=== PATIENT | male | born 1960 | race Hispanic/Latino ===

== ENCOUNTER 2019-12-05 06:59 | Inpatient (IN) | payer OTHER ==
[~2019-12-05] VITALS: Ht 160 cm; Wt 69.5 kg
[2019-12-05] MEDS ORDERED: ONDANSETRON HCL 4 MG/2 ML VIAL ONE ×2 (07:04→08:22)
[2019-12-05] MEDS ORDERED: FENTANYL CITRATE PF 50 MCG/1 ML 2ML VIAL ONE (07:43)
[2019-12-05] MEDS ORDERED: TETANUS/DIPHTHERIA TOXOID [ADULT] 0.5 ML VIAL IM ONE (07:44)
[2019-12-05 07:48] LABS: BASOPHILS % (AUTO) 0.4 % (0.0-5.0); EOSINOPHILS % (AUTO) 0.7 % (0.0-8.0); HEMATOCRIT 38.2 % (42-54); MEAN CORPUSCULAR HGB CONC 34.3 g/dL (32.0-36.0); MEAN CORPUSCULAR VOLUME 90.5 fL (79-99); MONOCYTES % (AUTO) 7.9 % (3.0-13.0); NEUTROPHILS % (AUTO) 66.6 % (40.0-77.0); PLATELET COUNT (AUTO) 168 K/uL (130-400); RED BLOOD CELL COUNT(AUTO) 4.22 MIL/uL (4.50-6.20); RED CELL DISTRIBUTION WIDTH 11.9 % (11.0-15.5); WHITE BLOOD COUNT (AUTO) 8.4 K/uL (4.8-10.8)
[2019-12-05 07:52] LABS: CREATININE 1.1 mg/dL (0.5-1.5); POTASSIUM 4.3 mmol/L (3.5-5.1)
[2019-12-05 07:57] LABS: INR 1.07 (0.85-1.15); PARTIAL THROMBOPLASTIN TIME 25.4 SEC (26.3-35.5); PROTHROMBIN TIME 11.5 SEC (9.6-11.6)
[2019-12-05 07:58] LABS: ALBUMIN 3.8 g/dL (3.5-5.0); BILIRUBIN,TOTAL 0.5 mg/dL (0.2-1.0); TOTAL PROTEIN, SERUM 7.8 g/dL (6.0-8.3)
[2019-12-05] MEDS ORDERED: IOHEXOL 350 MG/ML 100ML INFUS..BTL IV ONE (08:05)
[2019-12-05] MEDS ORDERED: MORPHINE SULFATE 4 MG/1ML SYG ONE (09:50)
[2019-12-05] MEDS ORDERED: SODIUM CHLORIDE 0.9% 100 ML IV ONE (12:26)
[2019-12-05] MEDS ORDERED: CEFAZOLIN SODIUM 1 GM VIAL ONE (12:26)
[2019-12-05] MEDS ORDERED: ONDANSETRON HCL 4 MG/2 ML VIAL IVP PRN (14:15)
[2019-12-05] MEDS ORDERED: IPRATROPIUM 0.5 MG/2.5 ML INH IH PRN (14:15)
[2019-12-05] MEDS ORDERED: ALBUTEROL SULFATE 0.083% 2.5 MG/3 ML INH IH PRN (14:15)
[2019-12-05] MEDS ORDERED: MORPHINE SULFATE 5 MG/ML VIAL IM PRN (14:15)
[2019-12-05] MEDS: KETOROLAC TROMETHAMINE 30MG/ML IM SCH ×2 (14:15→21:13)
[2019-12-05] MEDS: LIDOCAINE 5% TOPICAL PATCH TP SCH (14:15)
[2019-12-05] MEDS ORDERED: MORPHINE SULFATE 5 MG/ML VIAL ONE (16:24)
[2019-12-05] MEDS ORDERED: LACTATED RINGERS 1000ML 1,000 ML IV ONE (16:24)
[2019-12-05] MEDS ORDERED: LIDOCAINE 5% TOPICAL PATCH TP ONE (16:24)
[2019-12-05 19:00] VITALS: BP 101/63
[2019-12-05] MEDS ORDERED: ATOR10 PO (19:43)
[2019-12-05] MEDS ORDERED: GLIP2.5T2 PO (19:43)
[2019-12-05] MEDS ORDERED: METF-444 PO (19:43)
[2019-12-05 20:00] VITALS: BP 109/67
[2019-12-05 21:00] VITALS: BP 148/82
[2019-12-05] MEDS: LACTATED RINGERS 1000ML 1,000 ML IV SCH (21:13)
[2019-12-05 22:00] VITALS: BP 92/61
[2019-12-05 23:00] VITALS: BP 107/61
[2019-12-06] VITALS (23 sets, daily range): BP systolic 91–156; BP diastolic 59–88
[2019-12-06] MEDS: KETOROLAC TROMETHAMINE 30MG/ML IM SCH ×4 (03:24→20:21)
[2019-12-06 04:16] LABS: BASOPHILS % (AUTO) 0.1 % (0.0-5.0); EOSINOPHILS % (AUTO) 0.4 % (0.0-8.0); HEMATOCRIT 32.9 % (42-54); LYMPHOCYTES % (AUTO) 20.2 % (21.0-51.0); MEAN CORPUSCULAR HEMOGLOBIN 31.5 pg (27.0-33.0); MEAN CORPUSCULAR HGB CONC 34.3 g/dL (32.0-36.0); MEAN CORPUSCULAR VOLUME 91.6 fL (79-99); MONOCYTES % (AUTO) 11.9 % (3.0-13.0); PLATELET COUNT (AUTO) 122 K/uL (130-400); RED BLOOD CELL COUNT(AUTO) 3.59 MIL/uL (4.50-6.20); RED CELL DISTRIBUTION WIDTH 11.7 % (11.0-15.5); WHITE BLOOD COUNT (AUTO) 8.5 K/uL (4.8-10.8)
--- NOTE | 2019-12-06 06:30 | NUR ---
STATUS PATIENT AMBULATED IN HALLWAY. TOLERATED ACTIVITY WELL. FULL WEIGHT BEARING WITH PAIN ON AMBULATION TO LEFT LEG. POSITIONED IN BEDSIDE CHAIR TO COMFORT.
[2019-12-06] MEDS: LACTATED RINGERS 1000ML 1,000 ML IV SCH ×2 (07:20→16:47)
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
[2019-12-06] MEDS ORDERED: GLUCAGON 1MG KIT 1 MG ML IM PRN (13:15)
[2019-12-06] MEDS ORDERED: DEXTROSE 50%-WATER 50 ML DISP.SYRIN IV PRN (13:15)
[2019-12-06] MEDS: LIDOCAINE 5% TOPICAL PATCH TP SCH (15:31)
[2019-12-06] MEDS: INSULIN HUMULIN R 100 UNIT/ML 3ML SQ SCH ×2 (15:35→21:00)
--- NOTE | 2019-12-06 22:40 | NUR ---
Transfer to Med/Surg Spoke to donis Kim to transfer patient to floor.
--- NOTE | 2019-12-06 23:30 | NUR ---
TRANSFER RECEIVED PATIENT FROM ICU VIA BED, PATIENT AWAKE, ALERT, OX3, NO SOB, NO C/O PAIN AT THIS TIME, IVF INFUSING WELL, LEFT LOWER EXTREMITY DRESSING INTACT WITH SMALL AREA OF SEROS SANGUINOUS DRAINAGE NOTED, TEACH PATIENT PLAN OF CARE AND EXPECTED OUTCOME
[2019-12-07] MEDS: KETOROLAC TROMETHAMINE 30MG/ML IM SCH ×2 (02:31→09:38)
[2019-12-07 04:50] VITALS: BP 146/81
[2019-12-07 04:50] LABS: BASOPHILS % (AUTO) 0.1 % (0.0-5.0); EOSINOPHILS % (AUTO) 1.7 % (0.0-8.0); HEMATOCRIT 29.3 % (42-54); LYMPHOCYTES % (AUTO) 18.1 % (21.0-51.0); MEAN CORPUSCULAR HEMOGLOBIN 31.9 pg (27.0-33.0); MEAN CORPUSCULAR HGB CONC 34.8 g/dL (32.0-36.0); MEAN CORPUSCULAR VOLUME 91.6 fL (79-99); MONOCYTES % (AUTO) 11.1 % (3.0-13.0); NEUTROPHILS % (AUTO) 68.7 % (40.0-77.0); PLATELET COUNT (AUTO) 120 K/uL (130-400); RED CELL DISTRIBUTION WIDTH 11.6 % (11.0-15.5); WHITE BLOOD COUNT (AUTO) 7.1 K/uL (4.8-10.8)
[2019-12-07 05:01] LABS: CREATININE 0.8 mg/dL (0.5-1.5)
[2019-12-07] MEDS: LACTATED RINGERS 1000ML 1,000 ML IV SCH ×2 (05:58→21:14)
[2019-12-07] MEDS: INSULIN HUMULIN R 100 UNIT/ML 3ML SQ SCH ×4 (06:22→21:10)
[2019-12-07 10:11] VITALS: BP 157/85
[2019-12-07 11:50] VITALS: BP 157/57
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
[2019-12-07 18:29] VITALS: BP 142/82
[2019-12-07] MEDS: LIDOCAINE 5% TOPICAL PATCH TP SCH (19:06)
[2019-12-07] MEDS: KETOROLAC TROMETHAMINE 30MG/ML IV SCH ×2 (19:07→20:15)
[2019-12-07 20:00] VITALS: BP 148/75
[2019-12-08] VITALS: BP 114/69
[2019-12-08] MEDS: KETOROLAC TROMETHAMINE 30MG/ML IV SCH ×2 (01:53→10:04)
[2019-12-08 03:39] VITALS: BP 129/77
[2019-12-08 05:23] LABS: BASOPHILS % (AUTO) 0.3 % (0.0-5.0); EOSINOPHILS % (AUTO) 2.3 % (0.0-8.0); HEMATOCRIT 28.3 % (42-54); LYMPHOCYTES % (AUTO) 22.6 % (21.0-51.0); MEAN CORPUSCULAR HEMOGLOBIN 31.4 pg (27.0-33.0); MEAN CORPUSCULAR HGB CONC 34.3 g/dL (32.0-36.0); MEAN CORPUSCULAR VOLUME 91.6 fL (79-99); MONOCYTES % (AUTO) 11.7 % (3.0-13.0); NEUTROPHILS % (AUTO) 62.9 % (40.0-77.0); PLATELET COUNT (AUTO) 112 K/uL (130-400); RED BLOOD CELL COUNT(AUTO) 3.09 MIL/uL (4.50-6.20); RED CELL DISTRIBUTION WIDTH 11.7 % (11.0-15.5); WHITE BLOOD COUNT (AUTO) 6.6 K/uL (4.8-10.8)
[2019-12-08 05:38] LABS: CREATININE 0.9 mg/dL (0.5-1.5); POTASSIUM 3.8 mmol/L (3.5-5.1)
[2019-12-08] MEDS: INSULIN HUMULIN R 100 UNIT/ML 3ML SQ SCH ×2 (06:01→12:27)
[2019-12-08 08:00] VITALS: BP 154/83
[2019-12-08] MEDS ORDERED: MUPIROCIN OINTMENT 22 GM TUBE TP SCH (09:59)
[2019-12-08 11:00] VITALS: BP 146/75
== END 2019-12-08 13:50 | disposition home or self-care (01) | DRG 184 ==
LOC: EDH 06:59 → EDHIP 14:04 → DAHIP 18:33 → 3AH 12-06 23:03
PROVIDERS: ADMIT Surgery; ATTEND Surgery
PROC: 3E0234Z Introduction of Serum, Toxoid and Vaccine into Muscle, Percutaneous Approach (ICD-10-PCS; principal; 2019-12-05)
DX: S22.43XA Multiple fractures of ribs, bilateral, initial encounter for closed fracture (principal); T79.7XXA Traumatic subcutaneous emphysema, initial encounter; S81.832A Puncture wound without foreign body, left lower leg, initial encounter; E11.9 Type 2 diabetes mellitus without complications; S80.812A Abrasion, left lower leg, initial encounter; S60.512A Abrasion of left hand, initial encounter; E78.5 Hyperlipidemia, unspecified; V43.52XA Car driver injured in collision with other type car in traffic accident, initial encounter; Y93.89 Activity, other specified; Y99.8 Other external cause status; Z23 Encounter for immunization; Y92.410 Unspecified street and highway as the place of occurrence of the external cause
CPT/HCPCS: 36415; 70450; 71045; 71260; 72125; 73030; 73090; 73590; 74177; 80048; 80053; 82948; 85025; 85610; 85730; 90714; 93005; 94664; G0378; J0690; J1815; J1885; J2270; J2405; J3010; J7120; Q9967